=== PATIENT | female | born 1975 | race Two or more races ===

== ENCOUNTER 2020-08-23 10:19 | Outpatient (CLI) | payer OTHER | END 2020-08-23 15:42 | disposition home or self-care (01) | LOC: OFIC 805 10:19 | PROVIDERS: ATTEND Otolaryngology Otology & Neurotology | DX: H81.02 Meniere's disease, left ear (principal) ==

== ENCOUNTER → 2020-12-13 | Outpatient (CLI) | payer OTHER | END | disposition home or self-care (01) | LOC: OFIC 805 12:30 | PROVIDERS: ATTEND Otolaryngology Otology & Neurotology | DX: R42 Dizziness and giddiness (principal) ==